=== PATIENT | male | born 1970 | race Two or more races ===

== ENCOUNTER 2021-04-25 07:19 | Emergency (ER) | payer SELFPAY ==
[~2021-04-25] VITALS: Ht 167.6 cm; Wt 85.7 kg
[2021-04-25 07:37] VITALS: BP 147/111
--- NOTE | 2021-04-25 08:58 | NUR ---
pt ambulated with steady gait to er bed 8. reports back pain 11/05. took 800mg motrin at 0530 with minimal relief.
[2021-04-25] MEDS ORDERED: ketorolac trometh. 30mg/ml inj. IM ONE (10:45)
[2021-04-25] MEDS ORDERED: HYDR-3972 PO (10:55)
[2021-04-25] MEDS ORDERED: ORPH100T2 PO (10:55)
== END 2021-04-25 11:05 | disposition home or self-care (01) ==
LOC: ER 07:20
DX: S39.012A Strain of muscle, fascia and tendon of lower back, initial encounter (principal); M54.42 Lumbago with sciatica, left side; M54.41 Lumbago with sciatica, right side; Z79.899 Other long term (current) drug therapy; X58.XXXA Exposure to other specified factors, initial encounter; Y93.89 Activity, other specified; Y92.89 Other specified places as the place of occurrence of the external cause; Y99.8 Other external cause status
CPT/HCPCS: 96372; 99283; J1885